=== PATIENT | female | born 1970 | race Caucasian/White ===

== ENCOUNTER → 2016-05-28 | Outpatient (CLI) | payer BC ==
[~2016-05-28] MED LIST: ALDACTAZIDE 25/1 TAB PO; ALDOMET250 MG; ATENOLOL50 MG PO; B/P MED; BENTYL10 MG DOB; CLINDAMYCIN HC300 MG PO; ERYTHROCIN STE500 M1 PO; FIORINAL 50-321 EACH PO; FLONASE 0.05% N16 G1; GABAPENTIN300 MG PO; GLUCOPHAGE500 M1 PO; GLUCOPHAGE500 MG PO; HYDROXYZINE HCL50 MG PO; IRON325 ( 65 ); KETOPROFEN PO; LISINOPRIL10 MG PO; LORTAB 7.5-5001 TAB PO; METFORMIN HCL1000 M1 PO; METFORMIN HCL500 M1 PO; MUCUS ER600 MG PO; NAPROSYN500 MG PO; NORCO 5/325 TAB1 TAB PO; PERCOCET 5-3251 TAB PO; PHENERGAN PR; PHENERGAN25 M1 DOB; PRENATAL1 TA1; PRINIVIL40 MG PO; TORADOL10 MG PO; TYLENOL #3 PO; VIBRAMYCIN100 M1 PO; ZITHROMAX PO
--- NOTE | ~2016-05-28 | CT55 ---
[facility] A Service of [facility] & [facility] RADIOLOGY TEXT RESULTS PATIENT: BONNIE WIGGINS [facility] UNIT #: [id number] AGE: [address]: Gutierrez Hummel MD SEX: F ORDER DR: [id number] [facility] [address] [place], [place] [address] [id number] O MR#: [id number] Acc #: [id number] NAME: BONNIE WIGGINS. : 1970 SEX: F STUDY DATE/TIME: 05/28/2016 10:26 UNIT: [facility] ROOM: STUDY DESCRIPTION: CT Chest W Con Attending Physician: Gutierrez Hummel M.D. Referring Physician: Gutierrez Hummel M.D. Ordering Physician: Gutierrez Hummel M.D. Primary Care Physician: Little Castillo M.D. MEDICAL IMAGING REPORT This report is preliminary unless electronic signature is present EXAM Chest CT with contrast 05/28/2016 INDICATIONS 45-year-old female with lymphadenopathy. Worsening adenopathy on CT of the abdomen concerning for lymphoma. Left lower quadrant pain, nausea and diarrhea for 2-3 months. TECHNIQUE Contrast enhanced chest CT was performed and compared with 02/04/2012. This CT exam was performed with one or more of the following radiation dose reduction techniques: automatic control, adjustment of mA and/or kV according to patient size, and iterative reconstruction. FINDINGS CT CHEST: There is no evidence of pneumonia. Lungs are otherwise clear. Noncalcified 4 mm nodule bordering the right upper and middle lobe is incidentally noted. The patient should have a followup CT chest in 1 year to reassess stability. There is no axillary adenopathy. Visualized thyroid unremarkable. No pericardial effusion. Abnormal-appearing lymph nodes are present in the mediastinum. These are increased in number and some are increased in size. Index right paratracheal node measures 1.3 cm short axis previously 0.8 cm. Index precarinal node measures 1.2 cm short axis previously 0.8 cm. Subcarinal adenopathy to the right of midline measures 2.5 cm short axis previously 2 cm. Infrahilar node on the right measures 9 mm short axis previously 11 mm. An AP window node measures approximately 7 mm short axis which is unchanged. The aorta demonstrates no aneurysm or dissection. Spleen borderline in size at 12.5 cm AP, adrenal glands unremarkable gallbladder surgically absent. Remainder of the upper abdomen demonstrates no acute finding. [facility]. [facility] A Service of [facility] RADIOLOGY TEXT RESULTS PATIENT: BONNIE WIGGINS LOCATION: [facility] : 74 UNIT #: [id number] AGE: [address]: Gutierrez Hummel MD SEX: F ORDER DR: Please see separately dictated abdomen and pelvis CT same day for further details. No suspicious bone lesion. Degenerative changes in the thoracolumbar spine. IMPRESSION 1. There is a 4 mm noncalcified nodule in the right lung. 1-year followup CT recommended to reassess stability. It is new compared to the 2012 CT. 2. Overall slight interval increase in size of lymph nodes in the mediastinum and yvetet. Reference measurements are provided above. This is nonspecific but could reflect underlying malignancy including lymphoma. 3. Upper abdomen demonstrates no acute finding. Dictated by... Mark Stahl M.D. THIS IS AN ELECTRONICALLY VERIFIED REPORT Mark Stahl M.D. at 05/29/2016 7:39 AM CLAUDIA/kamron TD: 05/28/2016 12:23 JOB #: [id number] MEDICAL IMAGING REPORT COPY
--- NOTE | ~2016-05-28 | CT2 ---
[facility] A Service of [facility] & [facility] RADIOLOGY TEXT RESULTS PATIENT: BONNIE WIGGINS LOCATION: [facility] : 74 UNIT #: [id number] AGE: [address]: Gutierrez Hummel MD SEX: F ORDER DR: [id number] [facility] [address] [place], [place] [address] [id number] O MR#: [id number] Acc #: [id number] NAME: BONNIE WIGGINS. : 1970 SEX: F STUDY DATE/TIME: 05/28/2016 10:26 UNIT: [facility] ROOM: STUDY DESCRIPTION: CT Abd and Pelv W Cont Attending Physician: Gutierrez Hummel M.D. Referring Physician: Gutierrez Hummel M.D. Ordering Physician: Gutierrez Hummel M.D. Primary Care Physician: Little Castillo M.D. MEDICAL IMAGING REPORT This report is preliminary unless electronic signature is present EXAM Abdomen and pelvis CT with contrast, 05/28/2016. INDICATION 45-year-old female with worsening adenopathy on CT of the abdomen without contrast concerning for lymphoma. No history of malignancy status post cholecystectomy and hysterectomy. Nausea, diarrhea for 2-3 months and left lower quadrant pain. TECHNIQUE Contrast-enhanced abdomen and pelvis CT was performed. This CT exam was performed with one or more of the following radiation dose reduction techniques: automatic exposure control, adjustment of mA and/or kV according to patient size, and iterative reconstruction. COMPARISON 05/05/[address] ABDOMEN: Please see the separately dictated chest CT same date for further details regarding chest findings. Included lung bases are clear. Aorta unremarkable. The spleen is borderline in size at 12.5 cm AP. Adrenal glands and pancreas are unremarkable and the gallbladder is surgically absent. There is mild fatty infiltration of the liver. Kidneys enhance symmetrically. No hydronephrosis on either side. There is a stable peripelvic cyst in the left kidney measuring about 3 cm. There is an enlarged foramen of [place] node measuring up to 2.5 cm short axis. It appears to measure about 2.1 cm. A prominent aortocaval node measures 2.3 x 1.5 cm, not significantly changed from 2.2 x 1.6 cm on the prior study. A second aortocaval node more inferiorly measures 2.0 x 1.7 cm, previously 2.0 x 1.3 cm. A left inferior periaortic node measures 2.1 STS. [facility] A Service of [facility] RADIOLOGY TEXT RESULTS PATIENT: BONNIE WIGGINS LOCATION: [facility] : 74 UNIT #: [id number] AGE: [address]: Gutierrez Hummel MD SEX: F ORDER DR: x 1.3 cm, essentially unchanged. Prominent high-riding ovaries are present bilaterally and unchanged. CT PELVIS: Bladder unremarkable. Uterus surgically absent. No drainable fluid collection in the pelvis or adnexal mass. Bowel and appendix unremarkable. Inguinal canals unremarkable. Nodes in the external iliac chain on the right are unchanged. Tiny umbilical hernia only contains fat. There is fatty infiltration of the rectus sheath musculature on the right, also stable. Osseous structures demonstrate no new suspicious bone lesion. IMPRESSION 1. Previously documented adenopathy in the abdomen is not significantly changed from the prior CT of 05/05/2016, but did appear worse on the prior 05/05/2016, compared to a more distant 2013 study. The lymph nodes may be reactive but multiplicity and increase in size also raises the possibility of lymphoma and this should be correlated clinically. 2. Stable cyst in the left kidney measures 3 cm. 3. Fatty infiltration of the liver. 4. Status post cholecystectomy and hysterectomy. 5. Appendix normal. Dictated by... Mark Stahl M.D. THIS IS AN ELECTRONICALLY VERIFIED REPORT Mark Stahl M.D. at 05/29/2016 7:39 AM CLAUDIA/genesis TD: 05/28/2016 12:28 JOB #: [id number] MEDICAL IMAGING REPORT COPY
== END | disposition home or self-care (01) ==
LOC: CCAT 08:38
DX: R10.32 Left lower quadrant pain (principal); R59.0 Localized enlarged lymph nodes; R91.1 Solitary pulmonary nodule; N28.1 Cyst of kidney, acquired; K76.0 Fatty (change of) liver, not elsewhere classified; Z90.49 Acquired absence of other specified parts of digestive tract; Z90.710 Acquired absence of both cervix and uterus
CPT/HCPCS: 71260; 74177; Q9967

== ENCOUNTER 2016-07-22 21:59 | Emergency (ER) | payer BC ==
--- NOTE | ~2016-07-22 | EKG ---
PATIENT: BONNIE WIGGISN UNIT #: [id number] Ventricular Rate: 96 BPM Atrial Rate: 96 BPM P-R Interval: 162 ms QRS Duration: 94 ms Q-T Interval: 356 ms QTC Calculation(Bezet): 449 ms P [place]: 63 degrees Calculated R [place]: 25 degrees Calculated T [place]: 40 degrees Diagnosis Line: Sinus rhythm with occasional Premature ventricular Diagnosis Line: complexes Diagnosis Line: Otherwise normal ECG Diagnosis Line: When compared with ECG of 20-JUL-2012 21:00, Diagnosis Line: Premature ventricular complexes are now Present Diagnosis Line: Confirmed by WICHO CRUMP MD ([id number]) on Diagnosis Line: 07/24/2016 10:55:15 PM INTERPRETING MD: MOHAN
--- NOTE | ~2016-07-22 | CR72 ---
[facility] A Service of [facility] & [facility] RADIOLOGY TEXT RESULTS PATIENT: BONNIE WIGGINS LOCATION: [facility] : 74 UNIT #: [id number] AGE: [address]: Sangeeta Anton MD SEX: F ORDER DR: [id number] [facility] [address] [place], [place] [address] [id number] E MR#: [id number] Acc #: [id number] NAME: BONNIE WIGGINS. : 1970 SEX: F STUDY DATE/TIME: 07/22/2016 21:51 UNIT: [facility] ROOM: STUDY DESCRIPTION: CR Chest Single View Portable Attending Physician: Sangeeta Anton M.D. Ordering Physician: Sangeeta Anton M.D. Primary Care Physician: Little Castillo M.D. MEDICAL IMAGING REPORT This report is preliminary unless electronic signature is present EXAM Portable chest x-ray 07/22/2016 HISTORY Chest pain. Short of air, cough, increased blood sugar today. TECHNIQUE AP radiograph of the chest presented. COMPARISON STUDIES 07/13/2011. CT chest 05/28/2016. FINDINGS No acute bony abnormality. There is mild cardiac enlargement, increased from prior chest radiograph. Lung volumes [id number] with some central bronchovascular crowding. Pulmonary vasculature more pronounced than anticipated for the low lung volumes suggesting underlying vascular congestion. Subtle interstitial prominence [id number] lung zones which may in part be atelectatic in nature and in part be a reflection of interstitial edema. Patchy airspace disease right infrahilar region. Components of atelectasis and mild pneumonitis/pneumonia may be present. No dense airspace disease. 3-4 mm right upper lobe pulmonary nodule seen on prior CT examination, not seen on this radiograph. 12-month CT followup recommended (in May 2017). The mediastinal and hilar adenopathy seen on prior CT examination and of unclear exact etiology with both benign and malignant possibilities is not readily evident on the plain radiograph. CT followup recommended. Consider assessment with CT/PET scan if not previously evaluated. No pleural effusion or pneumothorax. [facility] A Service of [facility] & [facility] RADIOLOGY TEXT RESULTS PATIENT: BONNIE WIGGINS [id number] 74 UNIT #: [id number] AGE: [address]: Sangeeta Anton MD SEX: F ORDER DR: Dictated by... Dallas Whitlock M.D. THIS IS AN ELECTRONICALLY VERIFIED REPORT Dallas Whitlock M.D. at 07/28/2016 5:59 PM BELINDA/sparkle TD: 07/22/2016 23:31 JOB #: [id number] MEDICAL IMAGING REPORT Page 1 of 1 COPY
[2016-07-22 21:55] LABS: URINE SOURCE CLEAN CATCH
[2016-07-22 22:02] LABS: URINE BILIRUBIN NEG (NEG); URINE BLOOD NEG (NEG); URINE COLOR YELLOW; URINE GLUCOSE >1000 MG/DL (NEG); URINE KETONE NEG (NEG); URINE LEUKOCYTE ESTERASE NEG (NEG); URINE NITRATE NEG (NEG); URINE PROTEIN NEG (NEG); URINE UROBILINOGEN 0.2 MG/DL (NEG)
[2016-07-22 22:08] LABS: CULTURE INDICATED? NO; URINE APPEARANCE CLEAR
[2016-07-22 22:25] LABS: BASOPHIL% 0.1 % (0-2.5); DIFF IND NO; EOSINOPHIL% 0.1 % (0.0-7.0); HEMATOCRIT 41.1 % (35.0-45.0); HEMOGLOBIN 13.3 gm/dL (12.0-16.0); LYMPHOCYTE% 11.5 % (17.0-45.0); MEAN CELL VOLUME 89.5 FL (83-96); MEAN CORPUSCULAR HGB CONC 32.4 g/dL (30-36); MEAN PLATELET VOLUME 9.4 FL (6.5-11.5); MONOCYTE# 0.7 X10e3 (0-1.0); MONOCYTE% 8.2 % (3.0-12.0); NEUTROPHIL% 80.1 % (40-75); PLATELET COUNT 281 X10e3 (140-420); RED BLOOD COUNT 4.59 X10e (3.90-5.30); WHITE BLOOD COUNT 8.7 X10e3 (4.0-10.5)
[2016-07-22 22:31] LABS: POC - CKMB 1.5 ng/mL (0.0-7.9); POC - TROPONIN <0.05 ng/mL (<=0.05)
[2016-07-22 22:38] LABS: PARTIAL THROMBOPLASTIN TIME 22.9 SECONDS (23.5-31.3)
[2016-07-22 22:58] LABS: ALBUMIN SERUM 3.9 g/dL (3.5-5.0); ALKALINE PHOSPHATASE 65 U/L (32-92); ALT (SGPT) 19 U/L (10-40); AST (SGOT) 16 U/L (10-42); BETA HYDROXYBUTYRATE 0.08 MMOL/L (0.02-0.27); BILIRUBIN,TOTAL 0.6 mg/dL (0.2-2.0); BLOOD UREA NITROGEN 18 mg/dL (9-23); BUN/CREATININE RATIO 25.71; CALCIUM SERUM 9.5 mg/dL (8.4-10.2); CARBON DIOXIDE 23 mmol/L (22-31); CHLORIDE 103 mmol/L (100-111); CREATININE SERUM 0.7 mg/dL (0.6-1.4); GLOM FILT RATE Estimated 106.1 mL/min (>60); GLUCOSE FASTING 368 mg/dL (70-110); POTASSIUM 3.4 mmol/L (3.5-5.1); PROTEIN TOTAL SERUM 7.4 g/dL (6.0-8.3); SODIUM 136 mmol/L (135-145)
[2016-07-22 23:03] LABS: BILIRUBIN, DIRECT <0.1 mg/dL (0.0-0.2); BILIRUBIN,INDIRECT 0.5 mg/dL (0.0-0.9)
[2016-07-23 00:28] LABS: POC - CKMB <1.0 ng/mL (0.0-7.9); POC - TROPONIN <0.05 ng/mL (<=0.05)
== END 2016-07-23 02:00 | disposition home or self-care (01) ==
LOC: CED 21:59
PROVIDERS: Emergency Medicine
DX: R73.9 Hyperglycemia, unspecified (principal); J18.9 Pneumonia, unspecified organism; R01.1 Cardiac murmur, unspecified; I10 Essential (primary) hypertension; K76.0 Fatty (change of) liver, not elsewhere classified; F31.9 Bipolar disorder, unspecified; F17.210 Nicotine dependence, cigarettes, uncomplicated; Z90.49 Acquired absence of other specified parts of digestive tract; Z90.710 Acquired absence of both cervix and uterus
CPT/HCPCS: 36415; 71010; 80048; 80076; 81003; 82010; 82553; 82947; 83880; 84484; 85025; 85379; 85610; 85730; 93005; 96361; 96365; 96367; 99284; J0456; J0696

== ENCOUNTER 2016-12-15 21:18 | Emergency (ER) | payer BC ==
[~2016-12-15] VITALS: Ht 152.4 cm; Wt 121.6 kg
--- NOTE | ~2016-12-15 | EKG ---
PATIENT: BONNIE WIGGINS UNIT #: [id number] Ventricular Rate: 84 BPM Atrial Rate: 84 BPM P-R Interval: 154 ms QRS Duration: 84 ms Q-T Interval: 384 ms QTC Calculation(Bezet): 453 ms P [place]: 38 degrees Calculated R [place]: 21 degrees Calculated T [place]: 30 degrees Diagnosis Line: Normal sinus rhythm Diagnosis Line: Possible Left atrial enlargement Diagnosis Line: Borderline ECG Diagnosis Line: No previous ECGs available Diagnosis Line: Confirmed by DANNY BELTRAN MD ([id number]) on Diagnosis Line: 12/17/2016 9:42:52 AM INTERPRETING MD: DEVIN ODELL
--- NOTE | ~2016-12-15 | CR72 ---
[facility] A Service of [facility] & [facility] RADIOLOGY TEXT RESULTS PATIENT: BONNIE WIGGINS LOCATION: [facility] : 74 UNIT #: [id number] AGE: [address]: Milan Ocasio MD SEX: F ORDER DR: [id number] [facility] [address] [place], [place] [address] [id number] E MR#: [id number] Acc #: [id number] NAME: BONNIE WIGGINS : 1970 SEX: F STUDY DATE/TIME: 12/15/2016 22:02 UNIT: [facility] ROOM: STUDY DESCRIPTION: CR Chest Single View Portable Attending Physician: Milan Ocasio M.D. Ordering Physician: Ed Mohit Monsivais M.D. Primary Care Physician: Little Castillo M.D. MEDICAL IMAGING REPORT This report is preliminary unless electronic signature is present EXAM Single view chest dated 12/15/2016 COMPARISON Single view of chest dated 09/05/2016. HISTORY Chest pain, shortness of air and cough today. Dizziness and lightheadedness for the last 4 days. History of diabetes. FINDINGS Single view of the chest was obtained. A single AP portable view of the chest shows both lungs to be clear. The heart is normal in size. The mediastinal contour is normal. No significant bone abnormalities are seen. IMPRESSION Normal portable chest. Dictated by... Ahsan Velasco M.D. THIS IS AN ELECTRONICALLY VERIFIED REPORT Ahsan Velasco M.D. at 12/16/2016 5:06 PM CPR/df TD: 12/16/2016 07:52 JOB #: [id number] MEDICAL IMAGING REPORT Page 1 of 1 COPY
[2016-12-15 22:48] LABS: BASOPHIL% 0.4 % (0-2.5); EOSINOPHIL# 0.3 X10e3 (0-0.7); HEMATOCRIT 39.8 % (35.0-45.0); HEMOGLOBIN 13.3 gm/dL (12.0-16.0); LYMPHOCYTE# 1.6 X10e3 (1.0-3.5); LYMPHOCYTE% 29.3 % (17.0-45.0); MEAN CELL VOLUME 88.9 FL (83-96); MEAN CORPUSCULAR HEMOGLOBIN 29.6 PG (28-34); MEAN CORPUSCULAR HGB CONC 33.3 g/dL (30-36); MEAN PLATELET VOLUME 9.3 FL (6.5-11.5); MONOCYTE# 0.6 X10e3 (0-1.0); MONOCYTE% 10.6 % (3.0-12.0); NEUTROPHIL% 53.7 % (40-75); PLATELET COUNT 267 X10e3 (140-420); RED BLOOD COUNT 4.48 X10e (3.90-5.30); RED CELL DISTRIBUTION WIDTH 13.4 % (11.0-15.5); WHITE BLOOD COUNT 5.6 X10e3 (4.0-10.5)
[2016-12-15 22:49] LABS: DIFF IND NO
[2016-12-15 22:57] LABS: INR 0.9; PARTIAL THROMBOPLASTIN TIME 24.3 SECONDS (23.5-31.3); PROTHROMBIN TIME (PATIENT) 10.2 SECONDS (10.0-11.7)
[2016-12-15 23:12] LABS: POC - CKMB 1.3 ng/mL (0.0-7.9); POC - TROPONIN <0.05 ng/mL (<=0.05)
[2016-12-15 23:13] LABS: ALBUMIN SERUM 3.8 g/dL (3.5-5.0); BILIRUBIN, DIRECT 0.1 mg/dL (0.0-0.2); BUN/CREATININE RATIO 17.69; CALCIUM SERUM 9.2 mg/dL (8.4-10.2); CREATININE SERUM 1.3 mg/dL (0.6-1.4); GLOM FILT RATE Estimated 49.9 mL/min (>60)
[2016-12-15 23:14] LABS: BILIRUBIN,TOTAL 0.1 mg/dL (0.2-2.0)
[2016-12-16 01:48] LABS: POC - CKMB <1.0 ng/mL (0.0-7.9); POC - TROPONIN <0.05 ng/mL (<=0.05)
== END 2016-12-16 02:05 | disposition home or self-care (01) ==
LOC: CED 21:18
PROVIDERS: Emergency Medicine
DX: R00.2 Palpitations (principal); R07.9 Chest pain, unspecified; I10 Essential (primary) hypertension; E11.9 Type 2 diabetes mellitus without complications; F17.200 Nicotine dependence, unspecified, uncomplicated; Z88.5 Allergy status to narcotic agent; Z88.1 Allergy status to other antibiotic agents; Z88.0 Allergy status to penicillin; Z91.041 Radiographic dye allergy status
CPT/HCPCS: 36415; 71010; 80048; 80076; 82553; 84484; 85025; 85610; 85730; 93005; 99285; J2550